=== PATIENT | male | born 1965 | race Caucasian/White ===

== ENCOUNTER 2017-02-24 19:38 | Emergency (ER) | payer OTHER ==
[~2017-02-24] VITALS: Ht 177.8 cm; Wt 75.0 kg
[~2017-02-24 19:38] MED LIST: DOXY100T PO
[2017-02-24 19:49] VITALS: BP 129/80; PULSE 90; RESP 18; TEMP 96.3; O2SAT 96
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
[2017-02-24 22:37] VITALS: BP 160/85; PULSE 67; RESP 18; TEMP 97.6; O2SAT 100
[2017-02-24 23:08] LABS: AUTOMATED NEUTROPHIL # 3.6 TH/MM3 (1.8-7.7); BASOPHIL % 0.6 % (0.0-2.0); EOSINOPHIL # 0.4 TH/MM3 (0-0.4); EOSINOPHIL % 4.6 % (0.0-4.0); HEMATOCRIT 42.6 % (39.0-51.0); HEMO FLAGS DIFF FINAL; LYMPH % 41.9 % (9.0-44.0); LYMPHOCYTE # 3.3 TH/MM3 (1.0-4.8); MEAN CELL VOLUME 94.6 FL (80.0-100.0); MEAN CORPUSCULAR HGB CONC 33.8 % (32.0-36.0); MONO % 6.9 % (0.0-8.0); PLATELET COUNT 270 TH/MM3 (150-450); RED CELL DISTRIBUTION WIDTH 13.8 % (11.6-17.2); WHITE BLOOD COUNT 7.9 TH/MM3 (4.0-11.0)
[2017-02-24 23:19] LABS: ANION GAP 7 MEQ/L (5-15); AST (GOT) 16 U/L (15-37); BLOOD UREA NITROGEN 15 MG/DL (7-18); CHLORIDE 103 MEQ/L (98-107); GLOMERULAR FILTRATION RATE 107 ML/MIN (>89); POTASSIUM 3.7 MEQ/L (3.5-5.1); SODIUM (NA) 136 MEQ/L (136-145)
[2017-02-24 23:21] LABS: ALT (GPT) 22 U/L (12-78)
[2017-02-24 23:23] LABS: ACETAMINOPHEN LESS THAN 2.0 MCG/ML (10.0-30.0); ALCOHOL 71 MG/DL (0-5); ALKALINE PHOSPHATASE 100 U/L (45-117); TOTAL BILIRUBIN ADULT 0.3 MG/DL (0.2-1.0)
[2017-02-25 07:10] VITALS: BP 140/83; PULSE 68; RESP 16; TEMP 97.9; O2SAT 99
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
--- NOTE | 2017-02-25 14:53 | PD ---
Data Data Last Documented VS Vital Signs Date Time Temp Pulse Resp B/P (MAP) Pulse Ox O2 Delivery O2 Flow Rate FiO2 02/25/17 14:37 02/25/17 07:10 97.9 68 16 99 Room Air Orders Orders Complete Blood Count With Diff (02/24/17 22:26) Comprehensive Metabolic Panel (02/24/17 22:26) Psych Screen (02/24/17 22:26) Drug Screen, Random Urine (02/24/17 22:26) Alcohol (Ethanol) (02/24/17 22:26) Salicylates (Aspirin) (02/24/17 22:26) Tylenol (Acetaminophen) (02/24/17 22:26) Diet Regular Basic (02/25/17 Breakfast) Diet Regular Basic (02/25/17 Lunch) Labs Laboratory Tests Test 02/24/17 22:45 White Blood Count 7.9 TH/MM3 Red Blood Count 4.50 MIL/MM3 Hemoglobin 14.4 GM/DL Hematocrit 42.6 % Mean Corpuscular Volume 94.6 FL Mean Corpuscular Hemoglobin 32.0 PG Mean Corpuscular Hemoglobin Concent 33.8 % Red Cell Distribution Width 13.8 % Platelet Count 270 TH/MM3 Mean Platelet Volume 6.7 FL Neutrophils (%) (Auto) 46.0 % Lymphocytes (%) (Auto) 41.9 % Monocytes (%) (Auto) 6.9 % Eosinophils (%) (Auto) 4.6 % Basophils (%) (Auto) 0.6 % Neutrophils # (Auto) 3.6 TH/MM3 Lymphocytes # (Auto) 3.3 TH/MM3 Monocytes # (Auto) 0.5 TH/MM3 Eosinophils # (Auto) 0.4 TH/MM3 Basophils # (Auto) 0.0 TH/MM3 CBC Comment DIFF FINAL Differential Comment Blood Urea Nitrogen 15 MG/DL Creatinine 0.76 MG/DL Random Glucose 80 MG/DL Total Protein 7.9 GM/DL Albumin 3.9 GM/DL Calcium Level 7.9 MG/DL Alkaline Phosphatase 100 U/L Aspartate Amino Transf (AST/SGOT) 16 U/L Alanine Aminotransferase (ALT/SGPT) 22 U/L Total Bilirubin 0.3 MG/DL Sodium Level 136 MEQ/L Potassium Level 3.7 MEQ/L Chloride Level 103 MEQ/L Carbon Dioxide Level 26.0 MEQ/L Anion Gap 7 MEQ/L Estimat Glomerular Filtration Rate 107 ML/MIN Salicylates Level 4.9 MG/DL Urine Opiates Screen NEG Acetaminophen Level LESS THAN 2.0 MCG/ML Urine Barbiturates Screen NEG Urine Amphetamines Screen NEG Urine Benzodiazepines Screen NEG Urine Cocaine Screen NEG Urine Cannabinoids Screen NEG Ethyl Alcohol Level 71 MG/DL MDM Supervised Visit with RAMONA: No Narrative Course I saw this patient prior to discharge. He is here primarily requesting detox from alcohol. He is not suicidal on my assessment, I think he is safe for discharge. His thompson Act was lifted by psychiatry. Diagnosis Primary Impression: Adjustment disorder with mixed disturbance of emotions and conduct Additional Impression: Alcohol abuse Patient Instructions: General Instructions, Mood Disorders (ED), Alcohol Use Disorder (ED) Departure Forms: Tests/Procedures Additional Instruction: Follow up with Luis Carlos Lenz in regards to psychiatric or substance related issues at: [address] [place] [address] Med/Other Pt SpecificInfo: No Change to Meds Scripts No Active Prescriptions or Reported Meds Disposition: 01 DISCHARGE HOME Condition: Stable Suzy Souza MD Feb 25, 2017 14:53
[2017-02-25] MEDS ORDERED: chlordiazePOXIDE 25 MG CAP PO ONE (15:30)
[2017-02-25] MEDS ORDERED: IBUPROFEN 600 MG TAB PO ONE (15:30)
== END 2017-02-25 15:33 | disposition home or self-care (01) ==
LOC: NEPD 19:38
DX: F43.29 Adjustment disorder with other symptoms (principal); F10.10 Alcohol abuse, uncomplicated; Y90.3 Blood alcohol level of 60-79 mg/100 ml; F17.290 Nicotine dependence, other tobacco product, uncomplicated
CPT/HCPCS: 80053; 80307; 85025; 99283